=== PATIENT | male | born 1950 | race Caucasian/White ===

== ENCOUNTER 2023-07-17 13:19 | Outpatient (REF) | payer SELFPAY ==
--- NOTE | 2023-07-17 14:00 | MHC.AU.HA3 ---
Hearing Instrument Follow-Up- Binaural Date of Visit: 07/17/23 Right Ear: Make, Model, Color, Serial Number: Oticon REAL 2 miniRITE-R Chroma Beige SN [id number] Audio Engineer Repair Warranty: 08/02/2026 Audio Engineer Loss and Damage Warranty: 08/02/2026 [facility] Service Plan: 07/13/2024 Battery Size: Rechargeable Double Ending Machine Operator/Slim Tube: 2/100 Earmold/Dome/CShell/SlimTip:8mm power dome Type of Wax Guard: ProWax miniFit Dispensed By: [facility] Date of Fittin07/13/23 Left Ear: Make, Model, Color, Serial Number: Oticon REAL 2 miniRITE-R Chroma Beige SN [id number] Audio Engineer Repair Warranty: 08/02/2026 Audio Engineer Loss and Damage Warranty: 08/02/2026 [facility] Service Plan: 07/13/2023 Battery Size: Rechargeable Double Ending Machine Operator/Slim Tube: 2/100 Earmold/Dome/CShell/SlimTip: 8mm power dome Type of Wax Guard: ProWax miniFit Dispensed By: [facility] Date of Fittin07/13/23 Follow-Up Summary: Pt reports that he put an 8mm power back on the left and has been able to insert it better now than was achieved at the fitting. As I had advised him that feedback was cutting away some gain with the smaller dome, he would like me to adjust the aids now that he has the bigger dome on. Ran feedback. Big improvement. 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 Adjusted noise management settings and counseled on adjustment to his new amplification, that it may take some time to get used to hearing with these. Recommendations: Return for hearing aid check up as scheduled. Diagnosis Code(s): Primary Diagnosis: H90.3 Bilateral Sensorineural Hearing Loss Signature: Provider: Desiree Ortega, [facility]
== END 2023-07-17 13:20 | disposition home or self-care (01) ==
LOC: HO.HAP 13:19
PROVIDERS: Visit Provider Internal Medicine
DX: Z13.89 Encounter for screening for other disorder (principal)

== ENCOUNTER 2023-08-14 09:44 | Outpatient (REF) | payer SELFPAY ==
--- NOTE | 2023-08-14 11:26 | MHC.AU.HA3 ---
Hearing Instrument Follow-Up- Binaural Date of Visit: 08/14/23 Right Ear: Make, Model, Color, Serial Number: Oticon REAL 2 miniRITE-R Chroma Beige SN [id number] Lawn Care Professional Repair Warranty: 08/02/2026 Lawn [employer] Professional Loss and Damage Warranty: 08/02/2026 [facility] Service Plan: 07/13/2024 Battery Size: Rechargeable Medical Services Assistant/Slim Tube: 2/100 Earmold/Dome/CShell/SlimTip:8mm power dome Type of Wax Guard: ProWax miniFit Dispensed By: [facility] Date of Fittin07/13/23 Left Ear: Make, Model, Color, Serial Number: Oticon REAL 2 miniRITE-R Chroma Beige SN [id number] Lawn Care Professional Repair Warranty: 08/02/2026 Lawn Care Professional Loss and Damage Warranty: 08/02/2026 [facility] Service Plan: 07/13/2023 Battery Size: Rechargeable Medical Services Assistant/Slim Tube: 2/100 Earmold/Dome/CShell/SlimTip: 8mm power dome Type of Wax Guard: ProWax miniFit Dispensed By: [facility] Date of Fittin07/13/23 Follow-Up Summary: Here for follow up. Notable improvement over his old aids. Only complaint is continued struggle to hear some people when they first start speaking when he is at work. Turns the volume up but doesn't like how it turns everything up- the environment is noisy and reverberant. Added a speech in noise program to try at work. Reviewed program change. Jj notes he has enjoyed taking calls through his hearing aids. Recommendations: Recommendations: Hearing instrument follow-up or maintenance as needed. Please contact our clinic with any questions or concerns. Diagnosis Code(s): Primary Diagnosis: H90.3 Bilateral Sensorineural Hearing Loss Signature: Provider: Desiree Ortega, [facility]
== END 2023-08-14 09:45 | disposition home or self-care (01) ==
LOC: HO.HAP 09:44
PROVIDERS: Visit Provider Internal Medicine
DX: Z13.89 Encounter for screening for other disorder (principal)

== ENCOUNTER 2024-05-08 08:59 | Outpatient (REF) | payer SELFPAY ==
--- NOTE | 2024-05-08 12:59 | MHC.AU.HA3 ---
Hearing Instrument Follow-Up- Binaural Date of Visit: 05/08/24 Right Ear: Make, Model, Color, Serial Number: Oticon REAL 2 miniRITE-R Chroma Beige SN [id number] Sas Sql Developer Repair Warranty: 08/02/2026 Sas Sql Developer Loss and Damage Warranty: 08/02/2026 [facility] Service Plan: 07/13/2024 Battery Size: Rechargeable Hand Cloth Cutter/Slim Tube: 2/100 Earmold/Dome/CShell/SlimTip:8mm power dome Type of Wax Guard: ProWax miniFit Dispensed By: [facility] Date of Fittin07/13/23 Left Ear: Make, Model, Color, Serial Number: Oticon REAL 2 miniRITE-R Chroma Beige SN [id number] Sas Sql Developer Repair Warranty: 08/02/2026 Sas Sql Developer Loss and Damage Warranty: 08/02/2026 [facility] Service Plan: 07/13/2023 Battery Size: Rechargeable Hand Cloth Cutter/Slim Tube: 2/100 Earmold/Dome/CShell/SlimTip: 8mm power dome Type of Wax Guard: ProWax miniFit Dispensed By: [facility] Date of Fittin07/13/23 Follow-Up Summary: Here with a variety of domes in his bag and currently wearing 8mm single vent domes on his hearing aids. Reports he has been having issues with feeling like he needs to push the domes in to hear better. Also requesting overall VC increase, noting that he turns the aids up one step every day. Cleaned aids, changed wax guards, replaced domes with 8mm power right and 6mm power left as that was the arrangement we had at his last appointment. Jj reported feeling imbalanced due to the right dome being ackerman in the ear. Tried an 8mm power on the left (he had previous had trouble with insertion on the left with 8mm) and that seemed to work well. Was able to increase gain slightly left 2-4 kHz after running feedback coding manager with 8mm power domes in. Increased overall gain 2dB. Improvement reported. Advised of end of service plan June 2024. Recommendations: Recommendations: Hearing instrument follow-up or maintenance as needed. Diagnosis Code(s): Primary Diagnosis: H90.3 Bilateral Sensorineural Hearing Loss Signature: Provider: Jack D. Milkey, Au.D., CCC-A
== END 2024-05-08 09:00 | disposition home or self-care (01) ==
LOC: HO.HAP 08:59
PROVIDERS: Visit Provider Internal Medicine
DX: Z13.89 Encounter for screening for other disorder (principal)

== ENCOUNTER 2024-05-26 11:32 | Outpatient (REF) | payer SELFPAY ==
--- NOTE | 2024-05-26 12:22 | MHC.AU.HA3 ---
Hearing Instrument Follow-Up- Binaural Date of Visit: 05/26/24 Right Ear: Make, Model, Color, Serial Number: Oticon REAL 2 miniRITE-R Chroma Beige SN [id number] Safety Intern Repair Warranty: 08/02/2026 Safety Intern Loss and Damage Warranty: 08/02/2026 [facility] Service Plan: 07/13/2024 Battery Size: Rechargeable Manufacturing Team Leader/Slim Tube: 2/100 Earmold/Dome/CShell/SlimTip:8mm power dome Type of Wax Guard: ProWax miniFit Dispensed By: [facility] Date of Fittin07/13/23 Left Ear: Make, Model, Color, Serial Number: Oticon REAL 2 miniRITE-R Chroma Beige SN [id number] Safety Intern Repair Warranty: 08/02/2026 Safety Intern Loss and Damage Warranty: 08/02/2026 [facility] Service Plan: 07/13/2023 Battery Size: Rechargeable Manufacturing Team Leader/Slim Tube: 2/100 Earmold/Dome/CShell/SlimTip: 8mm power dome Type of Wax Guard: ProWax miniFit Dispensed By: [facility] Date of Fittin07/13/23 Follow-Up Summary: Both aids dropped off, c/o left . Found left to be weak and distorted. Cleaned both aids, replacing domes and wax guards. Left needed field operations manager replacement. Listening check positive. Recommendations: Recommendations: Hearing instrument follow-up or maintenance as needed. Diagnosis Code(s): Primary Diagnosis: H90.3 Bilateral Sensorineural Hearing Loss Signature: Provider: Desiree Ortega, [facility]
== END 2024-05-26 11:33 | disposition home or self-care (01) ==
LOC: HO.HAP 11:32
PROVIDERS: PCP Internal Medicine; Visit Provider Internal Medicine
DX: Z13.89 Encounter for screening for other disorder (principal)

== ENCOUNTER 2024-05-27 10:20 | Outpatient (REF) | payer SELFPAY | END 2024-05-27 10:21 | disposition home or self-care (01) | LOC: HO.HAP 10:20 | PROVIDERS: PCP Internal Medicine; Visit Provider Internal Medicine | DX: Z13.89 Encounter for screening for other disorder (principal) ==

== ENCOUNTER 2024-09-15 13:01 | Outpatient (AMB) | payer OTHER, SELFPAY ==
--- NOTE | 2024-09-15 13:05 | MHC.PC.OV ---
Vital Signs 09/15/24 13:07 Height 5 ft 3.19 in Weight 156 lb BMI 27.5 BP 122/62 Blood Pressure Location Lt brachial Position Sitting Pulse 73 Pulse Source Pulse Oximeter Temp 97.7 F Temp Source Temporal Artery Scan Pulse Oximetry (%) 97 Oxygen Delivery Method Room Air Intake Visit Reasons: establish care Intake Note: Patient is a new patient here to establish care for Asthma, GERD. Transferring care from [facility]. Medical records been requested and have not received. Specimen Technician Required: No Community Development Technician: Not Required per policy Accompanied by: Self / Same As Patient Allergies peanut Allergy (Severe, Verified 09/15/24 13:29) Anaphylaxis Medication List - Last Reconciled 09/15/24 by Lisa Michel PA-C fenofibrate 160 mg PO DAILY fluticasone propion-salmeterol 250-50 mcg/dose (Wixela Inhub) 1 inh inhalation BID omeprazole 10 mg PO DAILY Tobacco use date assessed: 09/15/24 Fall risk assessment: No Falls in past year Last assessed Fall Risk: 09/15/24 Dental Screening Dental Screen Date: 09/15/24 Did you have a dental visit in the last 12 months?: Yes Did you have a dental problem in the last 6 months where you did not have access to dental care?: No Was dental information given to patient?: Patient has dentist HPI establish care HPI Details 74-year-old male coming to the office for the 1st time. Past medical history of GERD, hyperlipidemia, asthma, pancreatic cyst, postnasal drip and sciatica of the left side. He is due for colonoscopy which he typically does through [place] but has been having issues with scheduling. He will be due for repeat MRI in 2024 to monitor pancreatic cyst and pancreatic divisum. He maintains his anti-reflux regimen with omeprazole and plans dietary changes to assist symptom management. While a pancreatic cyst requires monitoring, the patient had a gallbladder procedure previously. His rotator cuff tears, noted since age 67, do not yet impact daily activities severely despite sporadic sharp pains. Other chronic concerns include mitigated hyperlipidemia and well-managed asthma, with an active lifestyle including golf. He remains observant of recurring post-nasal drip likely linked to dietary habits or allergies. 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 1. Little interest or pleasure in doing things: not at all 2. Feeling down, depressed, or hopeless: not at all 3. Trouble falling or staying asleep, or sleeping too much: not at all 4. Feeling tired or having little energy: not at all 5. Poor appetite or overeating: not at all 6. Feeling bad about yourself - or that you are a failure or have let yourself or your family down: not at all 7. Trouble concentrating on things, such as reading the newspaper or watching television: not at all 8. Moving or speaking so slowly that other people could have noticed. Or the opposite - being so fidgety or restless that you have been moving around a lot more than usual: not at all 9. Thoughts that you would be better off or of hurting yourself in some way: not at all Total score: 0 Depression Screening Interpretation: Negative Depression Screening Done: Yes Source: Developed by Drs. Yuan Hinojosa, Delma Conley, Terell Madrigal and colleagues, with an educational chavez from [employer]. Thrive Questionnaire Date Thrive assessed: 09/08/24 I am a: Patient What is your living situation today?: I have a steady place to live Within the past 12 months, did the food you bought not last and you didn't have the money to get more?: Never true Within the past 12 months, did you worry whether your food would run out before you got money to buy more?: Never true Do you have trouble paying for medicines?: No Do you have trouble getting transportation to medical appointments?: No Do you have trouble paying your heating and electricity bill?: No Do you have trouble taking care of your child, family member or friend?: No Do you have trouble with day-to-day activities such as bathing, preparing meals, shopping, managing finances, etc.?: No Are you currently unemployed and looking for a job?: No Are you interested in more education?: No Please select the resources that you would like help with: None Currently or been in a relationship where the following occur: No concerns reported THRIVE Score: 0 AUDIT C Alcohol Use Questionnaire (AUDIT-C) 1. How often do you have a drink containing alcohol?: 2-4 times a month 2. How many drinks containing alcohol do you have on a typical day when you are drinking?: 1 or 2 3. How often do you have six or more drinks on one occasion?: Never Total Score: 2 EVERETTE-7 AMB Questionnaire EVERETTE-7 Date EVERETTE - 7 assessed: 09/15/24 Feeling nervous, anxious, or on edge: 0 = Not at all Not being able to stop or control worryin = Not at all Worrying too much about different things: 0 = Not at all Trouble relaxin = Not at all Being so restless that it is hard to sit still: 0 = Not at all Becoming easily annoyed or irritable: 0 = Not at all Feeling afraid as if something awful might happen: 0 = Not at all Total EVERETTE-7 score (0-4 normal; 5-9 mild; 10-14 moderate; 15-21 severe): 0 Source: Developed by Drs. Yuan Hinojosa, Delma Conley, Terell Madrigal and colleagues, with an educational chavez from [employer]. EVERETTE-7 Assessment Billing EVERETTE-7 Assessment Tool: EVERETTE-7 Assessment 13341 Review of Systems Const Denies body aches, Denies chills, Denies fever(s), Denies headache(s) and Denies poor appetite Eyes Reports no additional complaints ENT Denies dysphagia, Denies dizziness, Denies headache(s) and Denies odynophagia Card Denies chest pain, Denies syncope, Denies edema, Denies irregular heart rhythm, Denies lightheadedness and Denies dyspnea Resp Denies cough and Denies dyspnea GI Denies abdominal pain, Denies constipation, Denies dysphagia, Denies diarrhea, Denies nausea, Denies odynophagia and Denies vomiting Reports no additional complaints Musc Reports no additional complaints and Denies abnormal gait Skin/Breast Reports system reviewed and no additional complaints, except as documented Neuro Denies abnormal gait, Denies dizziness, Denies syncope and Denies headache(s) Psych Reports no additional complaints Physical exam (Primary Care) Vital Signs: Last Vital Signs Temp 97.7 F 09/15/24 13:07 Oxygen Delivery Method Room Air 09/15/24 13:07 BMI result Body Mass Index 27.5 Tobacco/Smoking Status: Tobacco use Status Tobacco use date assessed 09/15/24 09/15/24 13:11 Patient Tobacco Use Status Never used Tobacco 09/15/24 13:11 e-Cigarette/Vaping Use Never Used 09/15/24 13:11 PHQ-9: PHQ-9 Score PHQ-9: Total score 0 09/15/24 13:11 Depression Screening Interpretation: Negative Thrive Assessment: Date of Thrive Assessment Date Thrive assessed 09/08/24 09/15/24 13:11 Currently or been in a relationship where the following occur: No concerns reported Const General: cooperative, healthy appearing, comfortable and no acute distress Orientation/consciousness: patient oriented x3 HENMT Head: Yes normocephalic Ears: hearing grossly normal bilaterally General nose exam: Normal external nose present Eyes General: appearance normal, both eyes and all related structures Conjunctivae: conjunctivae normal Neck Neck: Yes full ROM and Yes no lymphadenopathy Resp Effort & Inspection: normal respiratory effort Auscultation: clear to auscultation bilaterally, no crackles, no rales, no rhonchi and no wheezes Cardio Rate: regular rate Rhythm: regular rhythm Skin General skin exam: no rashes or lesions noted Neuro General: patient oriented x3 Gait exam (Neuro): Normal gait present Extrem General: Yes normal to inspection, Yes full ROM and No edema Psych Affect: normal affect Attitude: cooperative Insight: Good insight present (Psych) Judgement: Good judgement present (Psych) Coding Level of Care Code New Pt Level 4 (10046) Diagnoses Sciatica of left side M54.32 Pancreatic divisum Q45.3 Pancreatic cyst K86.2 Asthma J45.909 GERD (gastroesophageal reflux disease) K21.9 Hypercholesterolemia E78.00 Post-nasal drip R09.82 Right shoulder pain M25.511 Additional Codes EVERETTE-7 Assessment Billing - EVERETTE-7 Assessment Tool: EVERETTE-7 Assessment [id number] ([id number]) Assessment & Plan Assessment & Plan (1) Sciatica of left side: Code(s): M54.32 - Sciatica, left side Category: Medical Plan: patient denying symptoms at this time (2) Pancreatic divisum: Code(s): Q45.3 - Other congenital malformations of pancreas and pancreatic duct Category: Medical Plan: plan to review past medical records to see when MRI is due. (3) Pancreatic cyst: Code(s): K86.2 - Cyst of pancreas Category: Medical Plan: plan to review past medical records to see when MRI is due. (4) Asthma: Code(s): J45.909 - Unspecified asthma, uncomplicated Category: Medical Plan: Asthma currently controlled on present medications. Continue on Wixela and albuterol as needed.? Avoid triggers such as allergies. (5) GERD (gastroesophageal reflux disease): Code(s): K21.9 - Gastro-esophageal reflux disease without esophagitis Category: Medical Plan: Avoid trigger foods such as citrus, tomato products, soda, caffeine, spicy foods and other foods that may be irritating to your stomach. Avoid laying flat 3-4 hours after eating and elevate the head of the bed 30 degrees to prevent acid from moving into the esophagus. (6) Hypercholesterolemia: Code(s): E78.00 - Pure hypercholesterolemia, unspecified Category: Medical Plan: Avoid foods that are high in cholesterol such as red meat, fried foods, eggs and baked goods. Triglyceride goal of less than 150 and LDL goal of less than 130. Continue on Fenofibrate (7) Post-nasal drip: Code(s): R09.82 - Postnasal drip Category: Medical Plan: Patient having post nasal drip symptoms recommend use of flonase and OTC antihistimine daily. PLan to follow up at next visit to monitor symptom improvement. (8) Right shoulder pain: Code(s): M25.511 - Pain in right shoulder Category: Medical Plan: patient experiencing intermittent random sharp pains in the right shoulder that resolve within sec with gentle stretching. Discussed with patient these are likely muscular and related to posture or activities. Advised to continue to monitor symptoms and if symptoms worsen or become persistent to reach out to the office Plan We reviewed management strategies for chronic conditions like reflux, asthma, and hyperlipidemia, emphasizing dietary adjustments and medication adherence. Potential post-nasal drip improvement may arise from antihistamines, subject to allergy confirmation. Well-documented colonoscopy and pancreatic cyst follow-up plans guide ongoing observation. While the patient manages shoulder-related musculoskeletal pains without surgery, this approach suffices with minimal pain impact. Lifestyle efforts remain directed at promoting systemic health maintenance with active participation in golf and diligent healthcare oversight. Plan to follow up in 3 months and have blood work done prior to visit. This note was constructed using voice recognition software. While every effort has been made to ensure accuracy and grinder watch parts, still areas may have been included sometimes these areas may affect the content or meeting of the given symptoms. Total time spent caring for the patient today was 30 minutes. This includes time spent before the visit reviewing the chart, time spent during the visit, and time spent after the visit and documentation. Patient was informed and verbally consented to the use of an ambient scribe for clinic note documentation during this visit. Orders: Orders Comprehensive Met. Panel Today Z00.00 - Encounter for general adult medical examination without abnormal findings TSH reflex Free T4 Today Z00.00 - Encounter for general adult medical examination without abnormal findings Vitamin B12 and Folate Today Z00.00 - Encounter for general adult medical examination without abnormal findings Lipid Panel Today E78.00 - Pure hypercholesterolemia, unspecified Free T4 (Free Thyroxine) Today Z00.00 - Encounter for general adult medical examination without abnormal findings Complete Blood Count Auto Diff Today Z00.00 - Encounter for general adult medical examination without abnormal findings PSA, Ultra Sensitive Today Z00.00 - Encounter for general adult medical examination without abnormal findings Vitamin D 25-OH Total Today Z00.00 - Encounter for general adult medical examination without abnormal findings
[2024-09-15 13:07] VITALS: BP 122/62; PULSE 73; TEMP 36.5; O2SAT 97; BMI 27.5
--- OUTSIDE RECORDS SUMMARY | 2024-09-15 14:39 | XMS_ITS | Clinical Summary ---
Author Organization [facility] Address [address] [place] [address] Care Team Providers Care Printing Roller Handler Name Role Phone Prabhakar Pardo MD Primary Care Provider [phone] Allergies Active Allergy Reactions Criticality Noted Date Comments Peanuts 05/18/2017 Medications Medication Sig Dispensed Refills Start Date End Date Status fenofibrate (TRICOR) tablet 145 mg Take 145 mg by mouth daily. 0 Active omeprazole (PRILOSEC) 20 MG capsule Take 20 mg by mouth daily. 0 Active fluticasone-salmeter ol (ADVAIR DISKUS) 100-50 MCG/DOSE DISKUS 1 inhalation by Inhaled route every 12 (twelve) hours. 0 Active Multiple Vitamin (MULTI VITAMIN DAILY PO) Take by mouth. 0 Active Social History Tobacco Use Types Packs/Day Years Used Date Smoking Tobacco: Never Assessed Sex and Gender Information Value Date Recorded Sex Assigned at Not on file Gender Identity Not on file Sexual Orientation Not on file Last Filed Vital Signs Vital Sign Reading Time Taken Comments Blood Pressure - - Pulse - - Temperature - - Respiratory Rate - - Oxygen Saturation - - Inhaled Oxygen Concentration - - Weight 74.8 kg (165 lb) 05/18/2017 11:06 AM EST Height 165.1 cm (5' 5 ) 05/18/2017 11:06 AM EST Body Mass Index 27.46 05/18/2017 11:06 AM EST Plan of Treatment Health Maintenance Due Date Last Done Comments Hepatitis C Screening 1950 COVID-19 Vaccine (#1) 01/12/1951 Depression Screening 1961 Preventative Health Evaluation 1967 DTap / Tdap / Td (1 - Tdap) 1968 Colon Cancer Screening (Colonoscopy) 1994 Shingrix-Zoster Vaccine (1 of 2) 1999 Fall Risk Assessment 2014 Pneumococcal Vaccine (1 of 1 - PCV) 2014 Influenza Vaccine (#1) 2024 RSV Adult > 60+ Yrs or Pregn ant (1 - 1-dose 75+ series) 2024 Hepatitis B Vaccines Aged Out No long er eligible based on patient's age to complete this topic RSV Ped < 20 months Aged Out No longe r eligible based on patient's age to complete this topic Care Teams Printing Roller Handler Relationship Specialty Start Date End Date Prabhakar Pardo MD [address] [facility] [address] [place] [address] PCP - General Oncology Nurse Navigator 04/02/17
--- OUTSIDE RECORDS SUMMARY | 2024-09-15 14:39 | XMS_ITS | Clinical Summary ---
Author Organization [facility] [address] [facility] Address [address] [place] [address] Phone Care Team Providers Care Pants Maker Name Role Phone Ever Davis MD Primary Care Provider [phone] Encounters Date Type Department Care Team Description 07/16/2024 Telephone Gastroenterology - [address] [address] Suyapa Roberts MD from Last 3 Months Social History Tobacco Use Types Packs/Day Years Used Date Smoking Tobacco: Never Assessed Sex and Gender Information Value Date Recorded Sex Assigned at Not on file Legal Sex Male 6:05 PM EST Gender Identity Not on file Sexual Orientation Not on file Plan of Treatment Health Maintenance Due Date Last Done Comments DTaP,Tdap,and Td Vaccines (1 - Tdap) 1968 Pneumococcal Vaccine: 50+ Ye ars (1 of 1 - PCV) 1999 Zoster Vaccines (1 of 2) 1999 COVID-19 Vaccine ( - 2023-2 5 season) 2024 Influenza Vaccine (#1) 2024 RSV Immunization Patients 60 + Years Old (1 - 1-dose 75+ series) 2024 Abdominal Aortic Aneurysm (A AA) Screen 07/17/2024 Cholesterol Screening (Lipid Panel) 07/17/2024 Colorectal Cancer Screening: Colonoscopy 07/17/2024 Depression Screening 07/17/2024 Falls Risk Assessment 07/17/2024 Hepatitis C Screening 07/17/2024 Medicare Annual Wellness Visit 07/17/2024 Social Influencers of Health Screening 07/17/2024 HIB Vaccines Aged Out No longer eligi ble based on patient's age to complete this topic HPV Vaccines Aged Out No longer eligi ble based on patient's age to complete this topic Hepatitis A Vaccines Aged Out No long er eligible based on patient's age to complete this topic Hepatitis B Vaccines Aged Out No long er eligible based on patient's age to complete this topic IPV Vaccines Aged Out No longer eligi ble based on patient's age to complete this topic MMR Vaccines Aged Out No longer eligi ble based on patient's age to complete this topic Meningococcal ACWY Vaccine Aged Out N o longer eligible based on patient's age to complete this topic Meningococcal B Vacine Aged Out No lo nger eligible based on patient's age to complete this topic RSV Immunization Patients Un rodrigue 20 months Aged Out No longer eligible b ased on patient's age to complete this topic Varicella Vaccines Aged Out No longer eligible based on patient's age to complete this topic Insurance [employer] MEDICARE ADVANTAGE on file Care Teams Pants Maker Relationship Specialty Start Date End Date Ever Davis MD [address] [facility] [address] [place], [place] PCP - General Internal Medicine 07/16/24
== END 2024-09-15 14:13 | disposition home or self-care (01) ==
LOC: HO.HMCH 13:02
DX: M54.32 Sciatica, left side (principal); Q45.3 Other congenital malformations of pancreas and pancreatic duct; K86.2 Cyst of pancreas; J45.909 Unspecified asthma, uncomplicated; K21.9 Gastro-esophageal reflux disease without esophagitis; E78.00 Pure hypercholesterolemia, unspecified; R09.82 Postnasal drip; M25.511 Pain in right shoulder

== ENCOUNTER → 2024-09-15 13:01 | Outpatient (BNVA) | payer OTHER, SELFPAY | DX: M54.32 Sciatica, left side (principal); K86.2 Cyst of pancreas; J45.909 Unspecified asthma, uncomplicated; K21.9 Gastro-esophageal reflux disease without esophagitis; E78.00 Pure hypercholesterolemia, unspecified; R09.82 Postnasal drip; M25.511 Pain in right shoulder; Q45.3 Other congenital malformations of pancreas and pancreatic duct | CPT/HCPCS: 96127 ==

== ENCOUNTER 2024-12-01 11:03 | Outpatient (REF) | payer OTHER, SELFPAY ==
--- NOTE | ~2024-12-01 | US_ITS ---
EXAMINATION: US ABDOMEN LIMITED CLINICAL INFORMATION: Abnormal LFTs. COMPARISON: None available. TECHNIQUE: Real-time imaging of the right upper quadrant abdominal viscera. FINDINGS: PANCREAS: Visualized portions are unremarkable. LIVER: The liver is normal in size. The liver contour is normal. Diffusely increased parenchymal echogenicity. No focal hepatic lesion. There is no intrahepatic biliary duct dilatation seen. GALLBLADDER: Surgically absent. COMMON BILE DUCT: Normal in caliber measuring 0.2 cm in diameter. RIGHT KIDNEY: No hydronephrosis. No renal calculi or focal parenchymal lesions. The kidney measures 10.1 cm in maximum dimension. FREE FLUID: None. US/US abdomen limited IMPRESSION: 1. Diffusely increased hepatic echogenicity suggestive of steatosis. No suspicious hepatic lesion. 2. Cholecystectomy. 3. No biliary abnormality. 4. Normal right kidney. Electronically signed by: Sarkis Mar MD 12/01/2024 12:47 PM EDT
--- OUTSIDE RECORDS SUMMARY | 2024-12-01 12:38 | XMS_ITS | Clinical Summary ---
Author Organization [facility] Address [address] [place] [address] Care Team Providers Care Trouble Shooting Mechanic Name Role Phone Prabhakar Pardo MD Primary Care Provider [phone] Allergies Active Allergy Reactions Criticality Noted Date [...] Vaccine (1 of 1 - PCV) 2014 RSV Adult > 60+ Yrs or Pregn ant (1 - 1-dose 75+ series) 2024 Influenza Vaccine (Season Ended) 2025 Hepatitis B Vaccines Aged Out No long er eligible based on patient's age to complete this topic RSV Ped < 20 months Aged Out No longe r eligible based on patient's age to complete this topic Care Teams Trouble Shooting Mechanic Relationship Specialty Start Date End Date Prabhakar Pardo MD [address] [facility] [address] [place] [address] PCP - General Horticulture Worker 04/02/17
== END 2024-12-01 11:04 | disposition home or self-care (01) ==
LOC: HO.HMGCX 11:03
DX: R79.89 Other specified abnormal findings of blood chemistry (principal)
CPT/HCPCS: 76705

== ENCOUNTER → 2024-12-01 11:59 | Outpatient (BNV) | payer OTHER, SELFPAY | PROVIDERS: Visit Provider Radiology Diagnostic Radiology | DX: R74.01 Elevation of levels of liver transaminase levels (principal) | CPT/HCPCS: 76705 ==

== ENCOUNTER 2024-12-23 14:13 | Outpatient (AMB) | payer OTHER, SELFPAY ==
[2024-12-23 14:31] VITALS: BP 138/82; PULSE 68; RESP 16; TEMP 36.3; O2SAT 98; BMI 27.1
--- NOTE | 2024-12-23 14:31 | A.OFFPC_ITS ---
Vital Signs 12/23/24 14:31 Height 5 ft 3.19 in Weight 154 lb 2 oz BMI 27.1 BP 138/82 Blood Pressure Location Lt brachial Position Sitting Respiration 16 Pulse 68 Pulse Source Pulse Oximeter Temp 97.3 F Temp Source Temporal Artery Scan Pulse Oximetry (%) 98 Oxygen Delivery Method Room Air Intake Visit Reasons: Annual Exam Allergies peanut Allergy (Severe, Verified 12/23/24 15:14) Anaphylaxis Medication List - Last Reconciled 12/23/24 by Lisa Michel PA-C fluticasone propion-salmeterol 250-50 mcg/dose (Wixela Inhub) 1 inh inhalation BID omega 3-eri-hpi-fish oil 1,000 (120-180) mg (Fish Oil) 1 cap PO DAILY omeprazole 10 mg PO DAILY Tobacco use date assessed: 12/23/24 Fall risk assessment: No Falls in past year Last assessed Fall Risk: 12/23/24 Dental Screening Dental Screen Date: 12/23/24 Did you have a dental visit in the last 12 months?: Yes Did you have a dental problem in the last 6 months where you did not have access to dental care?: No Was dental information given to patient?: Patient has dentist HPI Annual Exam HPI Details 74-year-old male with past medical histo ry of hypercholesterolemia, GERD, asthma last seen 08/2024 coming in for annual exam. Presenting with chronic condition management and review of lab results. Fatty l iver disease was identified on ultrasound, with recommendations to avoid alcohol and high-fat foods. Elevated liver enzymes were noted, with a history of stopping fenofibrate to assess its impact on liver function. Elevated triglycerides were noted, and fenofibrate was previously used for management. Postnasal drip has been persistent, with recommendations to use Flonase and saline nasal spray regularly. 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 1. Little interest or pleasure in doing things: not at all 2. Feeling down, depressed, or hopeless: not at all 3. Trouble falling or staying asleep, or sleeping too much: not at all 4. Feeling tired or having little energy: not at all 5. Poor appetite or overeating: not at all 6. Feeling bad about yourself - or that you are a failure or have let yourself or your family down: not at all 7. Trouble concentrating on things, such as reading the newspaper or watching television: not at all 8. Moving or speaking so slowly that other people could have noticed. Or the opposite - being so fidgety or restless that you have been moving around a lot more than usual: not at all 9. Thoughts that you would be better off or of hurting yourself in some way: not at all Total score: 0 Depression Screening Interpretation: Negative Depression Screening Done: Yes Source: Developed by Drs. Yuan Hinojosa, Delma Conley, Terell Madrigal and colleagues, with an educational chavez from [employer]. Thrive Questionnaire Date Thrive assessed: 09/08/24 I am a: Patient What is your living situation today?: I have a steady place to live Within the past 12 months, did the food you bought not last and you didn't have the money to get more?: Never true Within the past 12 months, did you worry whether your food would run out before you got money to buy more?: Never true Do you have trouble paying for medicines?: No Do you have trouble getting transportation to medical appointments?: No Do you have trouble paying your heating and electricity bill?: No Do you have trouble taking care of your child, family member or friend?: No Do you have trouble with day-to-day activities such as bathing, preparing meals, shopping, managing finances, etc.?: No Are you currently unemployed and looking for a job?: No Are you interested in more education?: No Please select the resources that you would like help with: None Currently or been in a relationship where the following occur: No concerns reported THRIVE Score: 0 AUDIT C Alcohol Use Questionnaire (AUDIT-C) 1. How often do you have a drink containing alcohol?: 2-4 times a month 2. How many drinks containing alcohol do you have on a typical day when you are drinking?: 1 or 2 3. How often do you have six or more drinks on one occasion?: Never Total Score: 2 Score Reviewed/Action Taken: Yes EVERETTE-7 AMB Questionnaire EVERETTE-7 Date EVERETTE - 7 assessed: 09/15/24 Feeling nervous, anxious, or on edge: 0 = Not at all Not being able to stop or control worryin = Not at all Worrying too much about different things: 0 = Not at all Trouble relaxin = Not at all Being so restless that it is hard to sit still: 0 = Not at all Becoming easily annoyed or irritable: 0 = Not at all Feeling afraid as if something awful might happen: 0 = Not at all Total EVERETTE-7 score (0-4 normal; 5-9 mild; 10-14 moderate; 15-21 severe): 0 Source: Developed by Drs. Yuan Hinojosa, Delma Conley, Terell Madrigal and colleagues, with an educational chavez from [employer]. Review of Systems Const Denies body aches, Denies fatigue, Denies fever(s), Denies frequent falls, Denies headache(s) and Denies weakness Eyes Reports no additional complaints and Denies change in vision ENT Denies dysphagia, Denies dizziness, Denies facial pain, Denies headache(s), Denies nasal congestion and Denies odynophagia Card Denies chest pain, Denies syncope, Denies irregular heart rhythm, Denies leg edema, Denies lightheadedness and Denies dyspnea Resp Denies cough and Denies dyspnea GI Denies abdominal pain, Denies constipation, Denies dysphagia, Denies dyspepsia, Denies diarrhea, Denies nausea, Denies odynophagia and Denies vomiting Denies dysuria, Reports nocturia, Denies urinary frequency, Denies urinary hesitancy and Denies urinary urgency Musc Denies back pain and Denies myalgias Skin/Breast Reports system reviewed and no additional complaints, except as documented Neuro Denies dizziness, Denies syncope, Denies frequent falls, Denies headache(s) and Denies weakness Psych Reports no additional complaints Endo Denies fatigue Physical exam (Primary Care) Vital Signs: Last Vital Signs Temp 97.3 F 12/23/24 14:31 Pulse 68 12/23/24 14:31 Resp 16 12/23/24 14:31 BP 138/82 12/23/24 14:31 Pulse Ox 98 12/23/24 14:31 Oxygen Delivery Method Room Air 12/23/24 14:31 BMI result Body Mass Index 27.1 Tobacco/Smoking Status: Tobacco use Status Tobacco use date assessed 12/23/24 12/23/24 14:37 Patient Tobacco Use Status Never used Tobacco 12/23/24 14:37 e-Cigarette/Vaping Use Never Used 12/23/24 14:37 PHQ-9: PHQ-9 Score PHQ-9: Total score 0 12/23/24 16:56 Depression Screening Interpretation: Negative Thrive Assessment: Date of Thrive Assessment Date Thrive assessed 09/08/24 12/23/24 14:37 Currently or been in a relationship where the following occur: No concerns reported Advance Care Planning discussion: On file, no changes Date of discussion: 12/23/24 Who was present: Patient, spouse Time spent: 1-15 minutes, on File Did not discuss due to Cultural/Spiritual beliefs: No Const General: cooperative, healthy appearing, comfortable and no acute distress Orientation/consciousness: patient oriented x3 HENMT Head: Yes normocephalic Ears: hearing grossly normal bilaterally, external ears normal, TM's normal bilaterally and EAC's normal General nose exam: Normal external nose present Face and sinus: Yes normal facial exam and Yes sinuses nontender Mouth: Normal oral and palatal mucosa present and tongue normal Throat: Yes posterior oropharynx normal Eyes General: appearance normal, both eyes and all related structures Conjunctivae: conjunctivae normal Pupils: Equal, round and reactive pupils present EOM: EOMs intact bilaterally and No Nystagmus present Neck Neck: Yes normal visual inspection, Yes full ROM and Yes no lymphadenopathy Chest Chest palpation & inspection: normal inspection of the chest Resp Effort & Inspection: normal respiratory effort Auscultation: clear to auscultation bilaterally, no crackles, no rales, no rhonchi, no wheezes and breath sounds present Cardio Rate: regular rate Rhythm: regular rhythm Peripheral pulses: radial pulses present and dorsalis pedis present GI Inspection: Yes normal to inspection and No Abdominal wall edema Palpation (GI): Soft to palpation, not firm and nontender Auscultation: normal bowel sounds Rectal Exam - Male: Yes deferred General: Yes no CVA tenderness Back/Spine/Pelvis Back: no CVA tenderness Skin General skin exam: no rashes or lesions noted Neuro General: patient oriented x3 Cranial nerves: Yes Equal, round and reactive pupils present, Yes Midline tongue present, Yes Ability to bilaterally elevate shoulders present and No Nystagmus present Gait exam (Neuro): Normal gait present Extrem General: Yes normal to inspection, Yes full ROM, No no pedal edema and No edema Psych Speech and movement: Normal speech and movement present Affect: normal affect Insight: Good insight present (Psych) Judgement: Good judgement present (Psych) Coding Level of Care Code Est Pt Prev Care >65y(32505) Diagnoses Pancreatic cyst K86.2 Asthma J45.909 GERD (gastroesophageal reflux disease) K21.9 Hypercholesterolemia E78.00 Fatty liver K76.0 Annual physical exam Z00.00 Post-nasal drip R09.82 Additional Codes Vital Signs *Quality* - Advance Care Planning discussion: On file, no changes ([id number]) Vital Signs *Quality* - Time spent: 1-15 minutes, on File ([id number]) Assessment & Plan Assessment & Plan (1) Pancreatic cyst: Comment: MRI from [facility] [place] 03/01/2023 Impression: 1. Multiple nonenhancing cystic pancreatic lesions measuring up to 1.4 cm, 2 of which arise from the main creep pancreatic duct. Per the 90747 ACR white paper for management of incidental pancreatic cysts, recommend follow up every 2 years 5 times. Research has shown that follow up examination is can be safely performed without IV contrast. 2. Pancreas divisum 3. Moderate hepatic steatosis Code(s): K86.2 - Cyst of pancreas Category: Medical Plan: Per MRI from [facility] [place] performed 02/2023 recommending a 2 year follow up for repeat MRI. This will be ordered at this visit and per MRI report can be done without contrast. (2) Asthma: Code(s): J45.909 - Unspecified asthma, uncomplicated Category: Medical Plan: Asthma currently controlled on present medications. Continue on Wixela and albuterol as needed.? Avoid triggers such as allergies. (3) GERD (gastroesophageal reflux disease): Code(s): K21.9 - Gastro-esophageal reflux disease without esophagitis Category: Medical Plan: Avoid trigger foods such as citrus, tomato products, soda, caffeine, spicy foods and other foods that may be irritating to your stomach. Avoid laying flat 3-4 hours after eating and elevate the head of the bed 30 degrees to prevent acid from moving into the esophagus. (4) Hypercholesterolemia: Code(s): E78.00 - Pure hypercholesterolemia, unspecified Category: Medical Plan: Avoid foods that are high in cholesterol such as red meat, fried foods, eggs and baked goods. Triglyceride goal of less than 150 and LDL goal of less than 130 continue to hold fenofibrate as liver tests were elevated and repeat labs in 1 month. (5) Fatty liver: Code(s): K76.0 - Fatty (change of) liver, not elsewhere classified Category: Medical Plan: Healthy diet and regular exercise is encouraged. (6) Annual physical exam: Code(s): Z00.00 - Encounter for general adult medical examination without abnormal findings Category: Medical Plan: Patient is up-to-date on all recommended routine screenings and vaccinations for his age. He is due for colonoscopy and appointment is scheduled for January for consultation. Blood work is up-to-date and has been reviewed with the patient today. Plan to follow up in 3 months or sooner as needed (7) Post-nasal drip: Code(s): R09.82 - Postnasal drip Category: Medical Plan: Patient having post nasal drip symptoms recommend use of flonase and OTC antihistimine daily. PLan to follow up at next visit to monitor symptom improvement. Plan The plan includes monitoring the patient's liver function and triglyceride levels, with a follow-up lab test scheduled to reassess these parameters after discontinuation of fenofibrate. Dietary modifications are advised to manage fatty liver disease, including reducing intake of high-fat foods and alcohol. The patient is encouraged to increase water intake to improve hydration and support kidney function. For postnasal drip, the patient is advised to use Flonase and saline nasal spray regularly, along with a daily antihistamine. The patient is advised to continue managing rotator cuff symptoms conservatively, avoiding activities that exacerbate pain. This note was constructed using voice recognition software. While every effort has been made to ensure accuracy and poultry killer, still areas may have been included sometimes these areas may affect the content or meeting of the given symptoms. Total time spent caring for the patient today was 30 minutes. This includes time spent before the visit reviewing the chart, time spent during the visit, and time spent after the visit and documentation. Patient was informed and verbally consented to the use of an ambient scribe for clinic note documentation during this visit.
--- OUTSIDE RECORDS SUMMARY | 2024-12-23 15:05 | XMS_ITS | Clinical Summary ---
Author Organization [facility] [address] [facility] Address [address] [place] [address] Phone Care Team Providers Care Veterinary Anatomist Name Role Phone Ever Davis MD Primary Care Provider Social History Tobacco Use Types Packs/Day Years [...] Vaccine ( - 2023-2 5 season) 2024 RSV Immunization Adult Patie nts (1 - 1-dose 75+ series) 2024 Abdominal Aortic Aneurysm (A AA) Screen 07/17/2024 Cholesterol Screening (Lipid Panel) 07/17/2024 Colorectal Cancer Screening: Colonoscopy 07/17/2024 Depression Screening 07/17/2024 Falls Risk Assessment 07/17/2024 Hepatitis C Screening 07/17/2024 Medicare Annual Wellness Visit 07/17/2024 Social Influencers of Health Screening 07/17/2024 Influenza Vaccine (#1) 2025 HIB Vaccines Aged Out No longer eligi [...] age to complete this topic Meningococcal B Vaccine Aged Out No l onger eligible based on patient's age to complete this topic RSV Immunization Patients Un rodrigue 20 months Aged Out No longer eligible b ased on patient's age to complete this topic Varicella Vaccines Aged Out No longer eligible based on patient's age to complete this topic Insurance [employer] MEDICARE ADVANTAGE on file Care Teams Veterinary Anatomist Relationship Specialty Start Date End Date Ever Davis MD [address] [facility] [address] [place], [place] PCP - General Internal Medicine 07/16/24
--- OUTSIDE RECORDS SUMMARY | 2024-12-23 15:05 | XMS_ITS | Clinical Summary ---
Author Organization [facility] Address [address] [place] [address] Care Team Providers Care Customer Business Manager Name Role Phone Prabhakar Pardo MD Primary Care Provider [phone] Allergies Active Allergy Reactions Criticality Noted Date [...] - 1-dose 75+ series) 2024 Influenza Vaccine (#1) 2025 Hepatitis B Vaccines Aged Out No long er eligible based on patient's age to complete this topic RSV Ped < 20 months Aged Out No longe r eligible based on patient's age to complete this topic Care Teams Customer Business Manager Relationship Specialty Start Date End Date Prabhakar Pardo MD [address] [facility] [address] [place] [address] PCP - General Electron Beam Machine Welder Setter 04/02/17
== END 2024-12-23 15:53 | disposition home or self-care (01) ==
LOC: HO.HMCH 14:14
DX: Z00.00 Encounter for general adult medical examination without abnormal findings (principal); K86.2 Cyst of pancreas; J45.909 Unspecified asthma, uncomplicated; K21.9 Gastro-esophageal reflux disease without esophagitis; E78.00 Pure hypercholesterolemia, unspecified; K76.0 Fatty (change of) liver, not elsewhere classified; R09.82 Postnasal drip

== ENCOUNTER 2025-01-20 15:04 | Outpatient (AMB) | payer OTHER, SELFPAY ==
--- NOTE | 2025-01-20 15:11 | A.OFFVIS_ITS ---
Vital Signs 01/20/25 15:17 Height 5 ft 3 in Weight 152 lb BMI 26.9 BP 112/78 Blood Pressure Location Rt brachial Position Sitting Pulse 76 Pulse Source Pulse Oximeter Pulse Oximetry (%) 98 Oxygen Delivery Method Room Air Intake Visit Reasons: COLO Screening Intake Note: New pt for recall colo. Pt is new to [facility] PCP. Pt states that he had colo ~ 5 years ago via hospital in [place]. Could have been [facility] or [facility]. CC: Pt denies any GI sx or concerns at this time. Pt states he is taking PPI 1/2 dose per PCP and is having no difficulties at this time. [employer] Cleaner Required: No Accompanied by: Self / Same As Patient Allergies peanut Allergy (Severe, Verified 01/20/25 15:11) Anaphylaxis HPI HPI COLO Screening: Details: 74 year old? male here today for pre colonoscopy screening.? Patient was sent to us by his PCP.? Patient's last colonoscopy was 5 years ago. Patient is going to 5 year recall due to family history of CRC. Patient's father at age of 62 from colon cancer.? Patient denies any gastrointestinal symptoms in the past or at present.? Denies history of difficulty with sedation or anesthesia in the past.? Negative for history of sleep apnea.? Denies any history of cardiac, renal, pulmonary, or hepatic disease.?? No history of infectious? diseases like hepatitis A, B, C, HIV or tuberculosis.? 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 Cognitive needs: No Hearing needs: Yes (Hear aide) Vision needs: Yes (Reading glasses) Review of Systems Const Denies weight gain and Denies weight loss ENT Reports no additional complaints, Denies dysphagia and Denies odynophagia Card Reports no additional complaints Resp Reports no additional complaints GI Denies abdominal pain, Denies belching, Denies melena, Denies bloating, Denies change in bowel habits, Denies dysphagia, Denies excessive flatus, Denies dyspepsia, Denies heartburn, Denies diarrhea, Denies loose stools, Denies nausea, Denies odynophagia and Denies vomiting Reports no additional complaints Musc Reports no additional complaints Neuro Reports no additional complaints Psych Reports no additional complaints Endo Reports no additional complaints Physical Exam Vital Signs: Last Vital Signs Pulse 76 01/20/25 15:17 BP 112/78 01/20/25 15:17 Pulse Ox 98 01/20/25 15:17 Oxygen Delivery Method Room Air 01/20/25 15:17 BMI result Body Mass Index 26.9 Const General: healthy appearing, no acute distress and well developed Nutritional Appearance: well nourished Orientation/consciousness: patient oriented x3 Resp Effort & Inspection: normal respiratory effort, able to speak in complete sentences, no tracheal deviation and symmetric chest movement Auscultation: clear to auscultation bilaterally Cardio Rate: regular rate GI Inspection: Yes normal to inspection and No distended Palpation (GI): Soft to palpation, not firm, nontender and No hepatosplenomegaly present Auscultation: normal bowel sounds General: Yes no CVA tenderness Back/Spine/Pelvis Back: no CVA tenderness Skin General skin exam: elasticity normal, turgor normal and dry skin Neuro General: patient oriented x3 Psych Appearance: grossly normal Mental Status: mental status grossly normal Assessment & Plan Assessment & Plan (1) GERD (gastroesophageal reflux disease): Code(s): K21.9 - Gastro-esophageal reflux disease without esophagitis Category: Medical Qualifiers: Esophagitis presence: esophagitis presence not specified Qualified Code(s): K21.9 - Gastro-esophageal reflux disease without esophagitis (2) Pancreatic cyst: Comment: [place] [facility] [place] Impression: 1. Multiple nonenhancing cystic pancreatic lesions measuring up to 1.4 cm, 2 of which arise from the main creep pancreatic duct. Per the 93103 ACR white paper for management of incidental pancreatic cysts, recommend follow up every 2 years 5 times. Research has shown that follow up examination is can be safely performed without IV contrast. 2. Pancreas divisum 3. Moderate hepatic steatosis Code(s): K86.2 - Cyst of pancreas Category: Medical Plan: MRI ordered for patient to evaluate pancreatic cysts. (3) Elevated LFTs: Code(s): R79.89 - Other specified abnormal findings of blood chemistry Category: Medical (4) Fatty liver: Code(s): K76.0 - Fatty (change of) liver, not elsewhere classified Category: Medical Plan: Low-fat, low salt, low carb and high-protein diet recommended (5) Family history of colorectal cancer: Code(s): Z80.0 - Family history of malignant neoplasm of digestive organs Category: Medical (6) Screen for colon cancer: Code(s): Z12.11 - Encounter for screening for malignant neoplasm of colon Plan Patient denies any GI, cardiac or respiratory symptoms.? Denies any issues with anesthesia in the past.? Denies any history of sleep apnea.? No history infectious diseases in the past or present.? Not on any anticoagulation therapy.? Family history of CRC.? Patient denies melena, hematochezia, unintentional weight loss or ribbon like stools.? Discussed at length the pre- procedure,? prep, diet & medications as well as what to expect prior, during and after the procedure.?? Stressed the importance of good bowel prep.? Recommended the use of Vaseline or Calmoseptine OTC & baby wipes with bowel movements to promote comfort.? ?Patient verbalizes understanding and agrees to plan of care.? He was given the opportunity to ask questions and all questions answered.? We will see him after the procedure.? Orders: Orders MR abdomen wo/w con Today K86.2 - Cyst of pancreas Medications: New bisacodyl (Dulcolax (bisacodyl)) take 4 tabs at noon the day before your colonoscopy 20 mg (4 x 5 mg) PO ONCE 4 tabs 0RF constipation 1 day Z12.11 - Encounter for screening for malignant neoplasm of colon polyethylene glycol 3350 (Miralax) As directed by gastroenterology department at [facility] 238 grams PO ONCE 238 grams 0RF Z12.11 - Encounter for screening for malignant neoplasm of colon Coding Level of Care Code New Pt Level 3 (41802) Diagnoses Gastroesophageal reflux disease, unspecified whether esophagitis present K21.9 Esophagitis presence: esophagitis presence not specified Pancreatic cyst K86.2 Elevated LFTs R79.89 Fatty liver K76.0 Family history of colorectal cancer Z80.0 Screen for colon cancer Z12.11 Time Spent (min) 40 Comment 30 minutes spent with patient and additional 10 minutes spent reviewing his records
[2025-01-20 15:17] VITALS: BP 112/78; PULSE 76; O2SAT 98; BMI 26.9
--- OUTSIDE RECORDS SUMMARY | 2025-01-20 15:36 | XMS_ITS | Clinical Summary ---
Author Organization [facility] Address [address] [place] [address] Care Team Providers Care Production Line Manager Name Role Phone Prabhakar Pardo MD Primary Care Provider [phone] Allergies Active Allergy Reactions Criticality Noted Date [...] age to complete this topic Care Teams Production Line Manager Relationship Specialty Start Date End Date Prabhakar Pardo MD [address] [facility] [address] [place] [address] PCP - General Hoist Operator 04/02/17
--- OUTSIDE RECORDS SUMMARY | 2025-01-20 15:36 | XMS_ITS | Clinical Summary ---
Author Organization [facility] [address] [facility] Address [address] [place] [address] Phone Care Team Providers Care Call Or Contact Centre Operator Name Role Phone Ever Davis MD Primary Care Provider [phone] Social History Tobacco Use Types Packs/Day Years Used Date Smoking Tobacco: Never Assessed Sex and Gender Information Value Date Recorded Sex Assigned at Not on file Legal Sex Male 6:05 PM EST Gender Identity Not on file Sexual Orientation Not on file Plan of Treatment Health Maintenance Due Date Last Done Comments DTaP,Tdap,and Td Vaccines (1 - Tdap) 1968 Pneumococcal Vaccine: 50+ Years (1 of 1 - PCV) 1999 12/02/2014 Zoster Vaccines (1 of 2) 1999 018, 12/14/2017 COVID-19 Vaccine ( - 2023-2 5 season) 2024 04/27/2021, 07/20/2020, 06/22/2020 Depression Screening 06/18/2024 RSV Immunization Adult Patients (1 - 1-dose 75+ series) 2024 Abdominal Aortic Aneurysm (AAA) Screen 07/17/2024 Cholesterol Screening (Lipid Panel) 07/17/2024 Colorectal Cancer Screening: Colonoscopy 07/17/2024 Falls Risk Assessment 07/17/2024 Hepatitis C Screening 07/17/2024 Medicare Annual Wellness Visit 07/17/2024 Social Influencers of Health Screening 07/17/2024 Influenza Vaccine (#1) 2025 , 03/09/2010 HIB Vaccines Aged Out No longer eligi [...] to complete this topic RSV Immunization Patients Under 20 months Aged Out No longer eligible b ased on patient's age to complete this topic Varicella Vaccines Aged Out No longer eligible based on patient's age to complete this topic Insurance [employer] MEDICARE ADVANTAGE on file Care Teams Call Or Contact Centre Operator Relationship Specialty Start Date End Date Ever Davis MD [address] [facility] [address] [place], [place] PCP - General Internal Medicine 07/16/24
== END 2025-01-20 15:53 | disposition home or self-care (01) ==
LOC: HO.HGI 15:05
PROVIDERS: Visit Provider Nurse Practitioner Family
DX: K21.9 Gastro-esophageal reflux disease without esophagitis (principal); K86.2 Cyst of pancreas; R79.89 Other specified abnormal findings of blood chemistry; K76.0 Fatty (change of) liver, not elsewhere classified; Z80.0 Family history of malignant neoplasm of digestive organs
CPT/HCPCS: 99203

== ENCOUNTER 2025-02-05 11:00 | Outpatient (REF) | payer MEDICARE, SELFPAY ==
--- NOTE | ~2025-02-05 | MR_ITS ---
CLINICAL HISTORY: K86.2 - Cyst of pancreas MR abdomen with and without gadolinium Comparison: None provided Findings: No focal hepatic lesion. The gallbladder is absent. No biliary ductal dilation. Normal splenic size. No adrenal nodules. No hydronephrosis. Subcentimeter bilateral renal cysts. 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 A reference lesion in the pancreatic body measuring 6 mm can be seen on image 28 of series 5. More distally within the pancreatic tail on image 30 of series 5 is a 2nd cystic lesion measuring 7 mm. No main duct dilation or solid appearing pancreatic mass. The bowel appears nonobstructed. No adenopathy or vascular dilation. No ascites. No aggressive or destructive osseous lesions. Degenerative change of the lumbar spine. IMPRESSION: Numerous subcentimeter cystic lesions arising from the pancreas most consistent with side branch IPMN. A follow-up in 1 year is recommended. This document has been electronically signed by: Betty Oscar MD on 02/06/2025 16:45:44
--- OUTSIDE RECORDS SUMMARY | 2025-02-05 12:37 | XMS_ITS | Clinical Summary ---
Author Organization [facility] Address [address] [place] [address] Care Team Providers Care Manager Of Radiology Name Role Phone Prabhakar Pardo MD Primary Care Provider [phone] Allergies Active Allergy Reactions Criticality Noted Date [...] age to complete this topic Care Teams Manager Of Radiology Relationship Specialty Start Date End Date Prabhakar Pardo MD [address] [facility] [address] [place] [address] PCP - General International Recruiter 04/02/17
--- OUTSIDE RECORDS SUMMARY | 2025-02-05 12:38 | XMS_ITS | Clinical Summary ---
Author Organization [facility] [address] [facility] Address [address] [place] [address] Phone Care Team Providers Care Donor Specialist Name Role Phone Ever Davis MD Primary [...] [employer] MED[employer] ADVANTAGE on file Care Teams Donor Specialist Relationship Specialty Start Date End Date Ever Davis MD [address] [facility] [address] [place], [place] PCP - General Internal Medicine 07/16/24
== END 2025-02-05 11:01 | disposition home or self-care (01) ==
LOC: HO.MRI 11:00
PROVIDERS: Visit Provider Nurse Practitioner Family
DX: K86.2 Cyst of pancreas (principal)
CPT/HCPCS: 74183; A9585

== ENCOUNTER → 2025-02-05 11:14 | Outpatient (BNV) | payer MEDICARE, SELFPAY | PROVIDERS: Visit Provider Radiology Diagnostic Radiology | DX: K86.2 Cyst of pancreas (principal) | CPT/HCPCS: 74183 ==

== ENCOUNTER 2025-02-18 10:25 | Day surgery (SDC) | payer MEDICARE, SELFPAY ==
--- OUTSIDE RECORDS SUMMARY | 2025-02-03 12:29 | XMS_ITS | Clinical Summary ---
Author Organization [facility] Address [address] [place] [address] Care Team Providers Care Equipment Service Engineer Name Role Phone Prabhakar Pardo MD Primary Care Provider [phone] Allergies Active Allergy Reactions Criticality Noted Date [...] age to complete this topic Care Teams Equipment Service Engineer Relationship Specialty Start Date End Date Prabhakar Pardo MD [address] [facility] [address] [place] [address] PCP - General Inspecting Supervisor 04/02/17
--- OUTSIDE RECORDS SUMMARY | 2025-02-03 12:29 | XMS_ITS | Clinical Summary ---
Author Organization [facility] [address] [facility] Address [address] [place] [address] Phone Care Team Providers Care Table Keeper Name Role Phone Ever Davsi MD Primary Care Provider Social History Tobacco [...] - Tdap) 1968 Pneumococcal Vaccine: 50+ Years (2 of 2 - PCV) 12/03/2015 12/02/2014 COVID-19 Vaccine ( - 2023-2 5 season) [...] 07/17/2024 Influenza Vaccine (#1) 2025 , 03/09/2010 Zoster Vaccines Completed 02/22/2018, 12/14/2017 HIB Vaccines Aged Out No longer eligi [...] [employer] MEDICARE ADVANTAGE on file Care Teams Table Keeper Relationship Specialty Start Date End Date Ever Davis MD [address] [facility] [address] [place], [place] PCP - General Internal Medicine 07/16/24
[2025-02-13 14:25] VITALS: BMI 26.9
[2025-02-18 11:19] VITALS: BP 145/74; PULSE 63; RESP 16; TEMP 36.7; O2SAT 98
[2025-02-18] MEDS: Lactated Ringers 1,000 ML 100 ML IVCONT (11:28)
--- NOTE | 2025-02-18 12:25 | P.CONAN_ITS ---
Documented by User: Vanessa Caruso NP 02/17/25 10:09 HPI - Anesthesia Eval Consult details Narrative: 74 yr old male for colonoscopy Asthma: controlled on Wixela and albuterol as needed [facility] Active Problems Active Problems: All Active Problems (Updated 02/13/25 @ 14:22 by Catie Child, RN) Annual physical exam (Acute) Fatty liver (Acute) Encounter for vitamin deficiency screening (Acute) Screening for thyroid disorder (Acute) Screening for prostate cancer (Acute) Screening for other and unspecified deficiency anemia (Acute) Elevated LFTs (Acute) Hyperkalemia (Acute) Right shoulder pain (Acute) Post-nasal drip (Acute) Sciatica of left side (Acute) Pancreatic divisum (Acute) Pancreatic cyst (Acute) Asthma (Acute) GERD (gastroesophageal reflux disease) (Acute) Hypercholesterolemia (Acute) Family history of colorectal cancer (Acute) Past Medical History Medical History (Updated 02/13/25 @ 14:22 by Catie Child RN) Elevated cholesterol Pancreatic cyst GERD (gastroesophageal reflux disease) Asthma Fatty liver Family history of colorectal cancer Family History Family History (Updated 01/20/25 @ 15:16 by REY Blair) Father Colon cancer Surgical History Surgical History (Updated 02/13/25 @ 14:27 by Catie Child RN) H/O colonoscopy History of right knee surgery History of surgery on lower extremity History of cholecystectomy History of cataract surgery Social History Social History Housing: House Alcohol intake: never Patient Tobacco Use Status: Never used Tobacco e-Cigarette/Vaping Use: Never Used Second Hand Smoke Exposure: No Use of substances other than those prescribed or required for medical reasons: No Are you DNR?: No Advance Directives: No Advance Directives Information Provided: Yes Poor oral hygiene: No service: No 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 Cognitive needs: No Hearing needs: Yes (Hear aide) Vision needs: Yes (Reading glasses) Meds Allergies Allergy/AdvReac Type Severity Reaction Status Date / Time peanut Allergy Severe Anaphylaxis Verified 01/20/25 15:11 Home Medications ?Medication ?Instructions ?Recorded ?Confirmed ?Last Taken ?Type omega 1-zed-tcf-fish oil 1,000 mg 1 cap PO DAILY 07/08 /25 08/29/25 Unknown History (120 mg-180 mg) capsule (Fish Oil) Exam Height,Weight and Vital Signs: Height 5 ft 3 in Weight 68.946 kg Documented by User: Mona Salazar DO 02/18/25 12:26 [facility] Past Medical History Medical History (Updated 02/13/25 @ 14:22 by Catie Child RN) Elevated cholesterol Pancreatic cyst GERD (gastroesophageal reflux disease) Asthma Fatty liver Family history of colorectal cancer Family History Family History (Updated 01/20/25 @ 15:16 by REY Blair) Father Colon cancer Family history of problems with anesthesia: No Surgical History Surgical History (Updated 02/13/25 @ 14:27 by Catie Child RN) H/O colonoscopy History of right knee surgery History of surgery on lower extremity History of cholecystectomy History of cataract surgery History of Problems with Anesthesia: No Social History Social History Housing: House Alcohol intake: never Patient Tobacco Use Status: Never used Tobacco e-Cigarette/Vaping Use: Never Used Second Hand Smoke Exposure: No Use of substances other than those prescribed or required for medical reasons: No Are you DNR?: No Advance Directives: No Advance Directives Information Provided: Yes Poor oral hygiene: No service: No 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 Cognitive needs: No Hearing needs: Yes (Hear aide) Vision needs: Yes (Reading glasses) Meds Allergies Allergy/AdvReac Type Severity Reaction Status Date / Time peanut Allergy Severe Anaphylaxis Verified 01/20/25 15:11 Home Medications ?Medication ?Instructions ?Recorded ?Confirmed ?Last Taken ?Type omega 4-cha-yke-fish oil 1,000 mg 1 cap PO DAILY 12/2302/13/25 Unknown History (120 mg-180 mg) capsule (Fish Oil) Exam Exam Date and Time: 02/18/25 1225 Height,Weight and Vital Signs: Height 5 ft 3 in Weight 68.946 kg Vital Signs Temperature 98.1 F 02/18/25 11:19 Pulse Rate 63 02/18/25 11:19 Respiratory Rate 16 02/18/25 11:19 Blood Pressure 145/74 H 02/18/25 11:19 Pulse Oximetry 98 02/18/25 11:19 Oxygen Delivery Method Room Air 02/18/25 11:19 Temperature 98.1 F 02/18/25 11:19 Pulse Rate 63 02/18/25 11:19 Respiratory Rate 16 02/18/25 11:19 Blood Pressure 145/74 H 02/18/25 11:19 Pulse Oximetry 98 02/18/25 11:19 Oxygen Delivery Method Room Air 02/18/25 11:19 Airway Mallampati Class: II TM Dist: >3cm Neck ROM: Full Loose/Missing/Broken Teeth: No Heart: S1S2 Lungs: CTAB Assessment and Plan Assessment Anesthesia Assessment: Anesthesia Plan Discussed and Chart Reviewed Final Anesthetic Review Family History of Problems with Anesthesia: No History of Problems with Anesthesia: No NPO: Yes ASA Class: II Final Preanesthetic Review: No Changes in Pt Med Stat, Meds/Allgs Chart Reviewed, Consent Obtained/Reviewed and Anes Risks/Benef Reviewed Patient Risk: Low Procedure Risk: Low Anesthetic Plan Anesthetic Plan: MAC: and Agree w/ Assess. and Plan Disposition: Standard PACU
--- NOTE | 2025-02-18 13:00 | MHC.SHP ---
Pre-Procedural Eval Section A - 24 Hr Update-Section A only Date of Service: 02/18/25 Section B - Complete if H&P > 30 days Chief Complaint: screening,hx malignant neoplasm Relevant Family History (Specify if Yes): Yes Relevant Social History: None Present Medications: see Short Stay Collaborative assessment Medical History: Significant History (Elevated cholesterol Pancreatic cyst GERD (gastroesophageal reflux disease) Asthma Fatty liver Family history of colorectal cancer) History of Previous Operations: Relevant previous surgery/procedure and date(s) ( H/O colonoscopy History of right knee surgery History of surgery on lower extremity History of cholecystectomy History of cataract surgery) Allergies: Allergies Allergy/AdvReac Type Severity Reaction Status Date / Time peanut Allergy Severe Anaphylaxis Verified 01/20/25 15:11 Review of Systems Sugical H&P ROS: Negative: Constitution, Cardiovascular, Respiratory, Neurological, Psychiatric, Hem-Onc, Allergic/Immunologic, Gastrointestinal, Genitourinary, Musculoskeletal, Integumentary, Endocrine and Eyes/Ears/Nose/Throat Exam Surgical H&P Exam: Normal: HEENT, Normal: Heart, Normal: Lungs, Normal: Extremities, Normal: Abdomen, Normal: Skin and Normal: Neurological Plan Diagnosis/Plan: Unchanged I have reviewed the history and physical and performed a pertinent physical examination on my patient. No changes have occurred unless specified. Time Spent With Patient Time: Total time managing care of this patient today ____ minutes.
--- NOTE | 2025-02-18 13:42 | P.OPN-COLO_ITS ---
Colonoscopy Operative Note Operative Note Date of Service: 02/18/25 Narrative: Operative Information Procedure Description: Colonoscopy Indication: Fh of CRC Anesthesia: MAC COLONOSCOPY Instrument: Olympus variable stiffness pediatric scope 190L Colonoscopy Monitoring: Vital signs and clinical assessment, continuous EKG monitoring, Pulse oximetry, Carbon Dioxide monitoring and blood pressure monitoring were done throughout the procedure. Colon withdrawal time was [] minutes. Procedure: The patient was placed in the left lateral decubitis position and pre-procedure medications were administered. After a digital rectal examination of the ano-rectum, the video colonoscope was inserted into the rectum and advanced through the colon to the cecum/TI. The colonoscope was slowly withdrawn in a retrograde panoramic fashion and the colon mucosa was carefully examined including a retroflexed view of the rectum. Findings and interventions are described below. Procedure Difficulty: difficult, pressure applied and looping. Findings: Terminal Ileum-normal Cecum: 5-6 mm sessile polyp removed with cold forceps Ascending Colon: 4-5 mm sessile polyp removed with cold forceps Transverse Colon - 10 mm flat polyp lifted with eleview and removed with cold snare Descending Colon: 10 mm flat polyp lifted with eleview and removed with cold snare Sigmoid Colon: moderate diverticulosis, x 2 sessile polyps 10 mm removed with cold snare Rectum: Retroflexion with small internal hemorrhoids seen, grade I Anorectum - normal Intervention: cold snare with eleview, cold forceps Colon preparation: Blackstone Bowel Preparation Scale Right colon; 2 Transverse colon: 2 Left colon; 2 (0 = Unprepared colon segment with mucosa not seen due to solid stool that cannot be cleared. 1 = Portion of mucosa of the colon segment seen, but other areas of the colon segment not well seen due to staining, residual stool and/or opaque liquid. 2 = Minor amount of residual staining, small fragments of stool and/or opaque liquid, but mucosa of colon segment seen well. 3 = Entire mucosa of colon segment seen well with no residual staining, small fragments of stool or opaque liquid) Impression and Post Procedure Diagnosis: diverticulosis colon polyps x 6 internal hemorrhoids Plan: High fiber diet leaflet Avoid straining at stool, epsom salts and sitz bath, anusol supps or cream Repeat Colonoscopy in 1-2 years or earlier if clinically indicated --NEXT time consider using adult scope or Colowrap Above findings were reviewed with the patient and relevant handouts were provided if indicated.
[2025-02-18 13:48] VITALS: BP 105/63; PULSE 67; RESP 16; TEMP 36.6; O2SAT 95
[2025-02-18 14:00] VITALS: BP 126/71; PULSE 63; RESP 16; O2SAT 99
[2025-02-18 14:15] VITALS: BP 131/75; PULSE 68; RESP 16; TEMP 36.6; O2SAT 99
== END 2025-02-18 15:16 | disposition home or self-care (01) ==
PROVIDERS: Visit Provider Internal Medicine Gastroenterology
PROC: 0DJD8ZZ Inspection of Lower Intestinal Tract, Via Natural or Artificial Opening Endoscopic (ICD-10-PCS; CPT 45378; principal; 2025-02-18 13:10)
DX: Z12.11 Encounter for screening for malignant neoplasm of colon (principal); D12.0 Benign neoplasm of cecum; D12.2 Benign neoplasm of ascending colon; D12.3 Benign neoplasm of transverse colon; D12.4 Benign neoplasm of descending colon; D12.5 Benign neoplasm of sigmoid colon; K57.30 Diverticulosis of large intestine without perforation or abscess without bleeding; K64.0 First degree hemorrhoids; K56.2 Volvulus; Z80.0 Family history of malignant neoplasm of digestive organs; E78.00 Pure hypercholesterolemia, unspecified; J45.909 Unspecified asthma, uncomplicated; K76.0 Fatty (change of) liver, not elsewhere classified; K86.2 Cyst of pancreas
CPT/HCPCS: 45385; 45380; 45381; 88305; J2003; J2704

== ENCOUNTER → 2025-02-18 10:25 | Outpatient (BNV) | payer MEDICARE, SELFPAY | PROVIDERS: Visit Provider Internal Medicine Gastroenterology | DX: Z12.11 Encounter for screening for malignant neoplasm of colon (principal); Z80.0 Family history of malignant neoplasm of digestive organs; D12.0 Benign neoplasm of cecum; D12.2 Benign neoplasm of ascending colon; K57.30 Diverticulosis of large intestine without perforation or abscess without bleeding; K64.0 First degree hemorrhoids; D12.3 Benign neoplasm of transverse colon; D12.4 Benign neoplasm of descending colon; D12.5 Benign neoplasm of sigmoid colon | CPT/HCPCS: 45380; 45381; 45385 ==

== ENCOUNTER 2025-04-08 14:15 | Outpatient (AMB) | payer OTHER, SELFPAY ==
--- NOTE | 2025-04-08 14:19 | A.OFFPC_ITS ---
Vital Signs 04/08/25 14:20 Height 5 ft 3 in Weight 152 lb 6 oz BMI 27.0 BP 130/72 Blood Pressure Location Lt brachial Position Sitting Pulse 83 Pulse Source Pulse Oximeter Temp 97.1 F Temp Source Temporal Artery Scan Pulse Oximetry (%) 99 Oxygen Delivery Method Room Air Intake Visit Reasons: 3mth f/u Allergies peanut Allergy (Severe, Verified 04/08/25 14:39) Anaphylaxis Medication List - Last Reconciled 04/08/25 by Lisa Michel PA-C bisacodyl (Dulcolax (bisacodyl)) 20 mg (4 x 5 mg) PO ONCE 1 day fluticasone propion-salmeterol 250-50 mcg/dose (Wixela Inhub) 1 inh inhalation BID omega 9-quc-ndw-fish oil 1,000 (120-180) mg (Fish Oil) 1 cap PO DAILY omeprazole 10 mg PO DAILY polyethylene glycol 3350 (Miralax) 238 grams PO ONCE Tobacco use date assessed: 04/08/25 Fall risk assessment: No Falls in past year Last assessed Fall Risk: 04/08/25 Dental Screening Dental Screen Date: 04/08/25 Did you have a dental visit in the last 12 months?: Yes Did you have a dental problem in the last 6 months where you did not have access to dental care?: No Was dental information given to patient?: Patient has dentist HPI 3mth f/u HPI Details 74-year-old male with past medical histo ry of hypercholesterolemia, GERD, asthma last seen 12/2024 coming in for follow up. In review of the notes, patient underwent colonoscopy 02/18/2025 plan for repeat colonoscopy in 1-2 years. MRI of the pancreas was performed with plans for repeat in 1 year. Presenting with dental issues and preventative care follow-up. Dental fracture occurred while eating magdaleno, resulting in a tooth breaking from front to back. The patient experienced no pain from the fracture and required an oral surgeon to remove the broken tooth and place stitches. The patient underwent a colonoscopy which revealed multiple polyps, necessitating follow-up in one to two years. The patient reports a history of postnasal drip, which has been less frequent recently. Asthma is well-controlled, even with recent physical activities such as golfing. 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 1. Little interest or pleasure in doing things: not at all 2. Feeling down, depressed, or hopeless: not at all 3. Trouble falling or staying asleep, or sleeping too much: not at all 4. Feeling tired or having little energy: not at all 5. Poor appetite or overeating: not at all 6. Feeling bad about yourself - or that you are a failure or have let yourself or your family down: not at all 7. Trouble concentrating on things, such as reading the newspaper or watching television: not at all 8. Moving or speaking so slowly that other people could have noticed. Or the opposite - being so fidgety or restless that you have been moving around a lot more than usual: not at all 9. Thoughts that you would be better off or of hurting yourself in some way: not at all Total score: 0 Depression Screening Interpretation: Negative Depression Screening Done: Yes Source: Developed by Drs. Yuan Hinojosa, Delma Conley, Terell Madrigal and colleagues, with an educational chavez from [employer]. Thrive Questionnaire Date Thrive assessed: 04/08/25 I am a: Patient What is your living situation today?: I have a steady place to live Within the past 12 months, did the food you bought not last and you didn't have the money to get more?: Never true Within the past 12 months, did you worry whether your food would run out before you got money to buy more?: Never true Do you have trouble paying for medicines?: No Do you have trouble getting transportation to medical appointments?: No Do you have trouble paying your heating and electricity bill?: No Do you have trouble taking care of your child, family member or friend?: No Do you have trouble with day-to-day activities such as bathing, preparing meals, shopping, managing finances, etc.?: No Are you currently unemployed and looking for a job?: No Are you interested in more education?: No Please select the resources that you would like help with: None Currently or been in a relationship where the following occur: No concerns reported THRIVE Score: 0 AUDIT C Alcohol Use Questionnaire (AUDIT-C) 1. How often do you have a drink containing alcohol?: 2-4 times a month 2. How many drinks containing alcohol do you have on a typical day when you are drinking?: 1 or 2 3. How often do you have six or more drinks on one occasion?: Never Total Score: 2 Score Reviewed/Action Taken: Yes EVERETTE-7 AMB Questionnaire EVERETTE-7 Date EVERETTE - 7 assessed: 09/15/24 Feeling nervous, anxious, or on edge: 0 = Not at all Not being able to stop or control worryin = Not at all Worrying too much about different things: 0 = Not at all Trouble relaxin = Not at all Being so restless that it is hard to sit still: 0 = Not at all Becoming easily annoyed or irritable: 0 = Not at all Feeling afraid as if something awful might happen: 0 = Not at all Total EVERETTE-7 score (0-4 normal; 5-9 mild; 10-14 moderate; 15-21 severe): 0 Source: Developed by Drs. Yuan Hinojosa, Delma Conley, Terell Madrigal and colleagues, with an educational chavez from [employer]. Review of Systems Const Denies body aches, Denies chills, Denies fever(s), Denies headache(s) and Denies poor appetite Eyes Reports no additional complaints ENT Denies dysphagia, Denies dizziness, Denies headache(s) and Denies odynophagia Card Denies chest pain, Denies syncope, Denies edema, Denies irregular heart rhythm, Denies lightheadedness and Denies dyspnea Resp Denies cough and Denies dyspnea GI Denies abdominal pain, Denies constipation, Denies dysphagia, Denies diarrhea, Denies nausea, Denies odynophagia and Denies vomiting Reports no additional complaints Musc Reports no additional complaints and Denies abnormal gait Skin/Breast Reports system reviewed and no additional complaints, except as documented Neuro Denies abnormal gait, Denies dizziness, Denies syncope and Denies headache(s) Psych Reports no additional complaints Physical exam (Primary Care) Vital Signs: Last Vital Signs Temp 97.1 F 04/08/25 14:20 Pulse 83 04/08/25 14:20 BP 130/72 04/08/25 14:20 Pulse Ox 99 04/08/25 14:20 Oxygen Delivery Method Room Air 04/08/25 14:20 BMI result Body Mass Index 27.0 Tobacco/Smoking Status: Tobacco use Status Tobacco use date assessed 04/08/25 04/08/25 14:22 Patient Tobacco Use Status Never used Tobacco 04/08/25 14:22 e-Cigarette/Vaping Use Never Used 04/08/25 14:22 PHQ-9: PHQ-9 Score PHQ-9: Total score 0 04/08/25 14:39 Depression Screening Interpretation: Negative Thrive Assessment: Date of Thrive Assessment Date Thrive assessed 04/08/25 04/08/25 14:22 Currently or been in a relationship where the following occur: No concerns reported Const General: cooperative, healthy appearing, comfortable and no acute distress Orientation/consciousness: patient oriented x3 [facility] Head: Yes normocephalic Ears: hearing grossly normal bilaterally General nose exam: Normal external nose present Eyes General: appearance normal, both eyes and all related structures Conjunctivae: conjunctivae normal Neck Neck: Yes full ROM and Yes no lymphadenopathy Resp Effort & Inspection: normal respiratory effort Auscultation: clear to auscultation bilaterally, no crackles, no rales, no rhonchi and no wheezes Cardio Rate: regular rate Rhythm: regular rhythm Skin General skin exam: no rashes or lesions noted Neuro General: patient oriented x3 Gait exam (Neuro): Normal gait present Extrem General: Yes normal to inspection, Yes full ROM and No edema Psych Affect: normal affect Attitude: cooperative Insight: Good insight present (Psych) Judgement: Good judgement present (Psych) Coding Level of Care Code Est Pt Level 3 (15057) Diagnoses Pancreatic cyst K86.2 Asthma J45.909 Gastroesophageal reflux disease, unspecified whether esophagitis present K21.9 Esophagitis presence: esophagitis presence not specified Hypercholesterolemia E78.00 Fatty liver K76.0 Post-nasal drip R09.82 Assessment & Plan Assessment & Plan (1) Pancreatic cyst: Comment: MRI from [facility] [place] [facility] 03/01/2023 Impression: 1. Multiple nonenhancing cystic pancreatic lesions measuring up to 1.4 cm, 2 of which arise from the main creep pancreatic duct. Per the 51482 ACR white paper for management of incidental pancreatic cysts, recommend follow up every 2 years 5 times. Research has shown that follow up examination is can be safely performed without IV contrast. 2. Pancreas divisum 3. Moderate hepatic steatosis Code(s): K86.2 - Cyst of pancreas Category: Medical Plan: MRI was completed 01/2025 recommend repeat in 1 year. (2) Asthma: Code(s): J45.909 - Unspecified asthma, uncomplicated Category: Medical Plan: Asthma currently controlled on present medications. Continue on Wixela and albuterol as needed.? Avoid triggers such as allergies. (3) GERD (gastroesophageal reflux disease): Code(s): K21.9 - Gastro-esophageal reflux disease without esophagitis Category: Medical Qualifiers: Esophagitis presence: esophagitis presence not specified Qualified Code(s): K21.9 - Gastro-esophageal reflux disease without esophagitis Plan: Avoid trigger foods such as citrus, tomato products, soda, caffeine, spicy foods and other foods that may be irritating to your stomach. Avoid laying flat 3-4 hours after eating and elevate the head of the bed 30 degrees to prevent acid from moving into the esophagus. (4) Hypercholesterolemia: Code(s): E78.00 - Pure hypercholesterolemia, unspecified Category: Medical Plan: Avoid foods that are high in cholesterol such as red meat, fried foods, eggs and baked goods. Triglyceride goal of less than 150 and LDL goal of less than 130 continue to hold fenofibrate as liver tests were elevated. He believes he has blood work done and plan to obtain these results. (5) Fatty liver: Code(s): K76.0 - Fatty (change of) liver, not elsewhere classified Category: Medical Plan: Healthy diet and regular exercise is encouraged. (6) Post-nasal drip: Code(s): R09.82 - Postnasal drip Category: Medical Plan: Patient having post nasal drip symptoms recommend use of flonase and OTC antihistimine daily. He feels it has improved since last visit. Plan This note was constructed using voice recognition software. While every effort has been made to ensure accuracy and instrumentation manager, still areas may have been included sometimes these areas may affect the content or meeting of the given symptoms. Total time spent caring for the patient today was 30 minutes. This includes time spent before the visit reviewing the chart, time spent during the visit, and time spent after the visit and documentation. Patient was informed and verbally consented to the use of an ambient scribe for clinic note documentation during this visit.
[2025-04-08 14:20] VITALS: BP 130/72; PULSE 83; TEMP 36.2; O2SAT 99; BMI 27.0
--- OUTSIDE RECORDS SUMMARY | 2025-04-08 20:29 | XMS_ITS | Clinical Summary ---
Author Organization [facility] [address] [facility] Address [address] [place] [address] Phone Care Team Providers Care Distribution Manager Name Role Phone Ever Davis MD Primary Care Provider Social History Tobacco Use Types Packs/Day Years Used Date Smoking Tobacco: Never Assessed Sex and Gender Information Value Date Recorded Sex Assigned at Not on file Legal Sex Male 6:05 PM EST Gender Identity Not on file Sexual Orientation Not on file Plan of Treatment Health Maintenance Due Date Last Done Comments Colorectal Cancer Screening: Colonoscopy 1950 DTaP,Tdap,and Td Vaccines (1 - Tdap) 1968 Pneumococcal Vaccine: 50+ Years (2 of 2 - PCV) 12/03/2015 12/02/2014 Depression Screening 06/18/2024 RSV Immunization Adult Patients (1 - 1-dose 75+ series) 2024 Abdominal Aortic Aneurysm (AAA) Screen 07/17/2024 Cholesterol Screening (Lipid Panel) 07/17/2024 Falls Risk Assessment 07/17/2024 Hepatitis C Screening 07/17/2024 Medicare Annual Wellness Visit 07/17/2024 Social Influencers of Health Screening 07/17/2024 COVID-19 Vaccine (4 - 2024-2 6 season) 2025 04/27/2021, 07/20/2020, 06/22/2020 Influenza Vaccine (#1) 2025 , 03/09/2010 Zoster [...] [employer] on file Care Teams Distribution Manager Relationship Specialty Start Date End Date Ever Davis MD [address] [facility] [address] [place], [place] PCP - General Internal Medicine 07/16/24
--- OUTSIDE RECORDS SUMMARY | 2025-04-08 20:29 | XMS_ITS | Clinical Summary ---
Author Organization [facility] Address [address] [place] [address] Care Team Providers Care Door Cutter Name Role Phone Prabhakar Pardo MD Primary Care Provider [phone] Allergies Active Allergy Reactions Criticality Noted Date [...] age to complete this topic Care Teams Door Cutter Relationship Specialty Start Date End Date Prabhakar Pardo MD [address] [facility] [address] [place] [address] PCP - General Technology Training Associate 04/02/17
== END 2025-04-08 15:25 | disposition home or self-care (01) ==
LOC: HO.HMCH 14:16
DX: K86.2 Cyst of pancreas (principal); J45.909 Unspecified asthma, uncomplicated; K21.9 Gastro-esophageal reflux disease without esophagitis; E78.00 Pure hypercholesterolemia, unspecified; K76.0 Fatty (change of) liver, not elsewhere classified; R09.82 Postnasal drip